=== PATIENT | female | born 1975 | race Two or more races ===

== ENCOUNTER 2017-10-02 18:40 | Inpatient (IN) | payer OTHER ==
[~2017-10-02] VITALS: Ht 157.5 cm; Wt 97.5 kg
[2017-10-02 19:13] VITALS: Ht 157.5 cm; Wt 97.5 kg
[2017-10-02 20:28] LABS: BASOPHIL % 0.5 % (0-2)
[2017-10-02 20:29] LABS: microscopic required? YES; urine erythrocyte TRACE (NEGATIVE)
[2017-10-02 20:32] LABS: PLATELET COUNT 596 x10^3mcL (130-400); RED CELL DISTRIBUTION WIDTH 15.4 % (11.5-14.5)
[2017-10-02 20:36] LABS: CALCIUM 8.3 mg/dL (8.5-10.1); CARBON DIOXIDE 26.8 mmol/L (21-32); CHLORIDE SERUM 98 mmol/L (98-107); CREATININE SERUM 0.7 mg/dL (0.6-1.0); GFR1 > 60 mL/min; GLUCOSE SERUM 97 mg/dL (74-106); POTASSIUM SERUM 4.1 mmol/L (3.5-5.1); SODIUM SERUM 134 mmol/L (136-145)
[2017-10-02 20:41] LABS: ALKALINE PHOSPHATASE 113 U/L (46-116); ALT/SGPT 32 U/L (14-59); AMYLASE 27 U/L (25-115); AST/SGOT 30 U/L (15-37); BILIRUBIN TOTAL 0.4 mg/dL (0.20-1.00); LIPASE 113 IU/L (73-393); TOTAL PROTEIN, SERUM 8.2 g/dL (6.4-8.2)
[2017-10-02 20:51] LABS: ALBUMIN 3.2 g/dL (3.4-5.0)
[2017-10-02] MEDS ORDERED: MONTELUKAST SOD10 M1 PO (22:29)
[2017-10-02] MEDS ORDERED: SYNTHROID0.2 MG PO (22:29)
[2017-10-02] MEDS ORDERED: PROAIR HFA8.5 GM IH (22:30)
[2017-10-02] MEDS ORDERED: DULERA1 AR3 IH (22:30)
[2017-10-03 00:14] LABS: CHOLESTEROL/HDL RATIO 4.6; MAGNESIUM 2.6 mg/dL (1.8-2.4); PHOSPHOROUS 3.9 mg/dL (2.5-4.9)
[2017-10-03 00:17] LABS: T3 TOTAL 0.99 ng/mL
[2017-10-03 00:22] LABS: FREE T4 0.88 ng/dL (0.76-1.46); FREE THYROXINE INDEX 2.3 ug/dL (1.4-4.5); T4(THYROXINE) 8.1 ug/dL (4.7-13.3)
[2017-10-03 04:07] VITALS: BP 105/67
[2017-10-03 06:25] LABS: BASOPHIL % 0.4 % (0-2)
[2017-10-03 06:39] LABS: RED CELL DISTRIBUTION WIDTH 15.7 % (11.5-14.5)
[2017-10-03 06:40] LABS: PLATELET COUNT 543 x10^3mcL (130-400)
[2017-10-03 06:48] LABS: CARBON DIOXIDE 26.5 mmol/L (21-32); CHLORIDE SERUM 101 mmol/L (98-107); CREATININE SERUM 0.6 mg/dL (0.6-1.0); GFR1 > 60 mL/min; GLUCOSE SERUM 120 mg/dL (74-106); MAGNESIUM 2.4 mg/dL (1.8-2.4); PHOSPHOROUS 3.4 mg/dL (2.5-4.9); POTASSIUM SERUM 4.1 mmol/L (3.5-5.1); SODIUM SERUM 137 mmol/L (136-145)
[2017-10-03 07:45] LABS: AMPHETAMINE QUAL UR NONE DETECTED (NEG <=1000)
[2017-10-03 09:53] VITALS: BP 98/63
[2017-10-03 13:37] VITALS: BP 105/74
[2017-10-03 17:36] VITALS: BP 106/76
[2017-10-03 21:06] VITALS: BP 105/70
[2017-10-04 05:53] VITALS: BP 102/59
[2017-10-04 14:58] LABS: BASOPHIL % 0.4 % (0-2)
[2017-10-04 15:19] LABS: CALCIUM 7.9 mg/dL (8.5-10.1); CARBON DIOXIDE 25.7 mmol/L (21-32); CHLORIDE SERUM 103 mmol/L (98-107); CREATININE SERUM 0.7 mg/dL (0.6-1.0); GFR1 > 60 mL/min; GLUCOSE SERUM 132 mg/dL (74-106); POTASSIUM SERUM 3.3 mmol/L (3.5-5.1); SODIUM SERUM 137 mmol/L (136-145)
[2017-10-04 15:20] LABS: PLATELET COUNT 500 x10^3mcL (130-400); RED CELL DISTRIBUTION WIDTH 15.4 % (11.5-14.5)
[2017-10-04 17:28] VITALS: BP 91/61
[2017-10-04 21:00] VITALS: BP 121/58
[2017-10-05 04:30] VITALS: BP 108/64
[2017-10-05 06:28] LABS: BASOPHIL % 0.3 % (0-2)
[2017-10-05 06:32] LABS: PLATELET COUNT 498 x10^3mcL (130-400)
[2017-10-05 06:53] LABS: CALCIUM 8.3 mg/dL (8.5-10.1); CARBON DIOXIDE 26.8 mmol/L (21-32); CHLORIDE SERUM 101 mmol/L (98-107); CREATININE SERUM 0.7 mg/dL (0.6-1.0); GFR1 > 60 mL/min; GLUCOSE SERUM 115 mg/dL (74-106); POTASSIUM SERUM 3.6 mmol/L (3.5-5.1); SODIUM SERUM 135 mmol/L (136-145)
[2017-10-05 08:36] VITALS: BP 102/63
[2017-10-05] MEDS ORDERED: LEVAQUIN750 MG PO (14:36)
[2017-10-05] MEDS ORDERED: FLA250 PO (14:36)
[2017-10-05 15:57] VITALS: BP 102/63
== END 2017-10-05 16:33 | disposition home or self-care (01) | DRG 249 ==
LOC: ED 18:40 → MU 21:38 → DU 21:38 → MU 10-03 10:18
PROVIDERS: Emergency Medicine; Family Medicine; Internal Medicine Gastroenterology
PROC: 0DB68ZX Excision of Stomach, Via Natural or Artificial Opening Endoscopic, Diagnostic (ICD-10-PCS; principal; 2017-10-04 12:30)
PROC: 0DJD8ZZ Inspection of Lower Intestinal Tract, Via Natural or Artificial Opening Endoscopic (ICD-10-PCS; 2017-10-04 12:30)
DX: K52.9 Noninfective gastroenteritis and colitis, unspecified (principal); E44.0 Moderate protein-calorie malnutrition; E87.1 Hypo-osmolality and hyponatremia; E66.01 Morbid (severe) obesity due to excess calories; R16.0 Hepatomegaly, not elsewhere classified; E86.0 Dehydration; D27.0 Benign neoplasm of right ovary; D27.1 Benign neoplasm of left ovary; D47.3 Essential (hemorrhagic) thrombocythemia; K64.8 Other hemorrhoids; J45.909 Unspecified asthma, uncomplicated; E78.5 Hyperlipidemia, unspecified; E03.9 Hypothyroidism, unspecified; R73.03 Prediabetes; E66.9 Obesity, unspecified; Z68.39 Body mass index [BMI] 39.0-39.9, adult
CPT/HCPCS: 43235; 45378; 83880; 84439; 94150; J1200; J1610; J1956; J2250; J2270; J2310; J2405; J2550; J3010; J3490; J7030; J7620; Q9967

== ENCOUNTER 2019-02-04 19:43 | Emergency (ER) | payer OTHER ==
[~2019-02-04] VITALS: Ht 154.9 cm; Wt 100.7 kg
[~2019-02-04 19:43] MED LIST: DULERA1 AR3 IH; FLA250 PO; LEVAQUIN750 MG PO; MONTELUKAST SOD10 M1 PO; PROAIR HFA8.5 GM IH; SYNTHROID0.2 MG PO
[2019-02-04 20:08] VITALS: Ht 154.9 cm; Wt 100.7 kg
[2019-02-04 22:58] VITALS: BP 115/72
== END 2019-02-04 22:58 | disposition home or self-care (01) ==
LOC: ED 19:43
DX: J45.901 Unspecified asthma with (acute) exacerbation (principal); B34.9 Viral infection, unspecified; N83.209 Unspecified ovarian cyst, unspecified side; Z88.0 Allergy status to penicillin; Z88.8 Allergy status to other drugs, medicaments and biological substances; Z90.49 Acquired absence of other specified parts of digestive tract
CPT/HCPCS: J7512; J7620

== ENCOUNTER 2019-06-16 09:49 | Emergency (ER) | payer OTHER ==
[~2019-06-16] VITALS: Ht 157.5 cm; Wt 99.3 kg
[2019-06-16 10:01] VITALS: BP 131/77; Ht 157.5 cm; Wt 99.3 kg
== END 2019-06-16 11:51 | disposition home or self-care (01) ==
LOC: ED 09:49
DX: J11.1 Influenza due to unidentified influenza virus with other respiratory manifestations (principal); J45.909 Unspecified asthma, uncomplicated; Z98.890 Other specified postprocedural states; Z88.0 Allergy status to penicillin; Z88.6 Allergy status to analgesic agent